=== PATIENT | female | born 1960 | race Caucasian/White ===

== ENCOUNTER 2023-10-08 13:52 | Outpatient (OUT) | payer MEDICARE, SELFPAY ==
[2023-10-08 16:08] LABS: Free T4 0.75 ng/dL (0.76-1.46)
[2023-10-08 16:20] LABS: Free T3 2.73 pg/mL (2.18-3.98); Thyroid Stimulating Hormone 1.654 uIU/mL (0.358-3.740)
[2023-10-09 04:07] LABS: Triiodothyronine (T3) 101 ng/dL (71-180)
[2023-10-12 16:10] LABS: Reverse T3, Serum 13.5 ng/dL (9.2-24.1)
== END 2023-10-08 13:53 | disposition home or self-care (01) ==
LOC: LAB 13:57
PROVIDERS: PCP Family Medicine; Visit Provider Family Medicine
DX: E07.81 Sick-euthyroid syndrome (principal); R53.82 Chronic fatigue, unspecified
CPT/HCPCS: 36415; 84439; 84443; 84480; 84481; 84482

== ENCOUNTER 2023-11-08 11:29 | Outpatient (OUT) | payer MEDICARE, SELFPAY | END 2023-11-08 11:30 | disposition home or self-care (01) | LOC: PST 11:33 | PROVIDERS: PCP Family Medicine; Visit Provider Surgery | DX: Z01.818 Encounter for other preprocedural examination (principal); R19.4 Change in bowel habit; Z85.038 Personal history of other malignant neoplasm of large intestine; R11.0 Nausea; R10.13 Epigastric pain ==

== ENCOUNTER 2023-12-04 11:21 | Day surgery (SDC) | payer MEDICARE, SELFPAY ==
--- NOTE | 2023-12-04 | OP_ITS ---
OPERATION DATE: 12/04/2023 PREOPERATIVE DIAGNOSIS: Epigastric pain, nausea, early satiety, personal history of rectal cancer. POSTOPERATIVE DIAGNOSIS: Sliding type hiatal hernia, distal esophagitis and small gastric body polyps and normal colonoscopy to cecum. PROCEDURE: EGD with biopsy of gastric body polyps, as well as biopsy of distal esophageal inflammation and colonoscopy to cecum. SURGEON: Lyle Sawyer M.D. ANESTHESIA: Monitored anesthesia care. ESTIMATED BLOOD LOSS: Less than 1 mL. INDICATIONS AND CONSENT: Patient is a 63-year-old female with a personal history of rectal cancer, status post low anterior resection in 2017. She also complains of epigastric pain, nausea and early satiety. Indications, risks, benefits, alternatives of proceeding with EGD and colonoscopy were explained extensively to the patient, including the risks of bleeding, aspiration, esophagogastric/gastric/duodenal or colonic perforation or anesthetic complications. All of her questions were answered. Informed consent was obtained. PROCEDURE: Patient brought to the operating room, placed in the left lateral decubitus position. Monitored anesthesia care was provided. Bite block was placed in the patient?s mouth. Scope was inserted into the oropharynx. Under direct visualization, it was advanced into the esophagus, past the cricopharyngeus, down to the stomach. The stomach was insufflated with air. The pylorus was traversed down to the descending portion of the duodenum. There was no evidence of duodenitis or ulceration. There was no scarring within the pyloric channel. Scope was pulled back into the stomach and retroflexed. There was noted to be a sliding type hiatal hernia. Within the gastric body, there were multiple small polyps. A biopsy was obtained with good hemostasis. The GE junction was noted at approximately 39 cm. There was some distal esophagitis with some inflamed nodular area that was biopsied. No evidence of Nunez?s esophagus. There was an irregular Z-line. The remainder of the esophagus was unremarkable. The scope was then withdrawn. Patient was then positioned for colonoscopy. Rectal exam was performed, which showed no masses or blood. The scope was then inserted into the anal canal. Under direct visualization, it was advanced. The low rectal anastomosis was noted. There was a blind pouch that was without abnormalities, other than several sutures. There was also a silk suture at the anastomosis more proximally. The scope was then advanced under direct visualization to the cecum where cecal markings were clearly identified. There was noted to be a good prep. Upon withdrawal of the scope, mucosal surfaces were carefully examined. There were no mass lesions or polyps. No inflammatory changes or ulcerations. There were some rare diverticula within the sigmoid colon. The scope was then withdrawn. The patient tolerated procedure well, was sent to recovery room in good condition. Follow up colonoscopy should be in five years. I did place her on protonix. CC: Vipul Jackson M.D. REYNALDO
[2023-12-04 11:38] LABS: Glucometer 111 mg/dL (74-106)
[2023-12-04 11:40] VITALS: BMI 31.0
[2023-12-04 11:53] VITALS: BP 147/85; PULSE 76; TEMP 35.5; O2SAT 97
[2023-12-04 15:14] VITALS: BP 128/55; PULSE 69; TEMP 35.9; O2SAT 96
[2023-12-04 15:29] VITALS: BP 115/67; PULSE 63; O2SAT 98
[2023-12-04 15:44] VITALS: BP 154/93; PULSE 68; O2SAT 97
== END 2023-12-04 15:44 | disposition home or self-care (01) ==
PROVIDERS: PCP Family Medicine; Visit Provider Surgery
PROC: (CPT 43239; principal; 2023-12-04 12:25)
DX: R19.4 Change in bowel habit (principal); R10.13 Epigastric pain; R11.0 Nausea; R68.81 Early satiety; K21.00 Gastro-esophageal reflux disease with esophagitis, without bleeding; K31.7 Polyp of stomach and duodenum; I10 Essential (primary) hypertension; E11.9 Type 2 diabetes mellitus without complications; E78.00 Pure hypercholesterolemia, unspecified; E03.9 Hypothyroidism, unspecified; F32.A Depression, unspecified; Z79.84 Long term (current) use of oral hypoglycemic drugs; Z87.891 Personal history of nicotine dependence; Z85.048 Personal history of other malignant neoplasm of rectum, rectosigmoid junction, and anus; Z90.710 Acquired absence of both cervix and uterus; G47.33 Obstructive sleep apnea (adult) (pediatric)
CPT/HCPCS: 43239; 45378; 36415; 82948; 88305; J2704